=== PATIENT | male | born 1985 | race African-American/Black ===

== ENCOUNTER 2020-08-20 01:56 | Emergency (ER) | payer SELFPAY ==
[2020-08-20] MEDS ORDERED: Midazolam 1 MG/ML 2 ML SDV IVPUSH ONE ×2 (02:12→03:30)
[2020-08-20] MEDS ORDERED: Diphtheria,Pertussis(Acell),Tetanus Vaccine 0.5 ML Syringe IM ONE (02:16)
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
[2020-08-20] MEDS ORDERED: Morphine 4 MG/ML Syringe IVPUSH ONE (02:52)
[2020-08-20] MEDS ORDERED: Midazolam 1 MG/ML 2 ML SDV ONE (03:31)
--- NOTE | 2020-08-20 03:33 | CT ---
INDICATION: Pain after injury TECHNIQUE: CT head without contrast. COMPARISON: None. FINDINGS: CSF spaces: Within normal limits for age. Brain parenchyma: The drew-white differentiation is normal. No sign of mass, hemorrhage, or midline shift. Skull base and calvarium: The visualized paranasal sinuses and mastoid air cells demonstrate no acute or significant findings. The visualized orbits are grossly unremarkable. No skull fractures. Left supraorbital scalp hematoma. IMPRESSION: Left supraorbital scalp hematoma without calvarial fracture or intracranial bleed. Please note that all CT scans at this facility use dose modulation, iterative reconstruction, and/or weight-based dosing when appropriate to reduce radiation dose to as low as reasonably achievable. Dictated by Bam Polo MD @ 08/20/2020 3:32:[address] Bam Polo @ Aug 20 2020 3:32AM
--- NOTE | 2020-08-20 03:39 | CT ---
INDICATION: Pain after injury TECHNIQUE: CT maxillofacial without contrast. COMPARISON: None FINDINGS: Facial bones: No fractures or bone lesions. Specifically the nasal bones, temporomandibular joints, maxilla and mandible appear intact. Orbits and globes: Slight fat stranding of the intraconal fat near the level of the optic nerve (series 208, image 68). Sinuses: No acute or significant findings. Soft tissues: Left supraorbital scalp hematoma and laceration. IMPRESSION: 1. Left supraorbital scalp hematoma and laceration without evidence of fracture. 2. No lens dislocation or clear globe dehiscence, however note is made of some intraconal hematoma at the margin of the left globe near the optic nerve. Although no xiomara dehiscence of the globe is seen on CT, considering the adjacent hematoma, close clinical follow-up suggested to exclude a subtle globe injury. Please note that all CT scans at this facility use dose modulation, iterative reconstruction, and/or weight-based dosing when appropriate to reduce radiation dose to as low as reasonably achievable. Dictated by Bam Polo MD @ 08/20/2020 3:38:[address] Bam Polo @ Aug 20 2020 3:38AM
[2020-08-20] MEDS ORDERED: Ketorolac 30 MG/ML SDV ONE (03:48)
== END 2020-08-20 04:00 | disposition home or self-care (01) ==
LOC: MW.ED 01:56
DX: S01.112A Laceration without foreign body of left eyelid and periocular area, initial encounter (principal); Z23 Encounter for immunization; W22.8XXA Striking against or struck by other objects, initial encounter
CPT/HCPCS: 12013; 70450; 70486; 90471; 90715; 96372; 96374; 96376; 99284; J1885; J2250; 99282

== ENCOUNTER 2020-08-23 13:50 | Emergency (ER) | payer SELFPAY ==
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
[2020-08-23] MEDS ORDERED: Cyclopentolate 1% Opth Soln 2 ML Bottle EYELF ONE (15:00)
== END 2020-08-23 15:18 | disposition home or self-care (01) ==
LOC: MW.ED 13:50
DX: H20.9 Unspecified iridocyclitis (principal); W22.8XXA Striking against or struck by other objects, initial encounter
CPT/HCPCS: 99282; 99283

== ENCOUNTER 2020-08-28 14:13 | Emergency (ER) | payer SELFPAY | END 2020-08-28 14:55 | disposition left against medical advice (07) | LOC: MW.ED 14:13 | DX: S01.119A Laceration without foreign body of unspecified eyelid and periocular area, initial encounter (principal); Z48.02 Encounter for removal of sutures | CPT/HCPCS: 99281 ==